=== PATIENT | female | born 1995 | race African-American/Black ===

== ENCOUNTER 2016-05-22 16:20 | Emergency (ER) | payer SELFPAY ==
[2016-05-22] MEDS ORDERED: Lidocaine 1% w/Epinephrine 1:100K 20 ML VIAL ONE (16:35)
== END 2016-05-22 17:03 | disposition home or self-care (01) ==
LOC: NAV ERS 16:20
DX: S01.81XA Laceration without foreign body of other part of head, initial encounter (principal); E66.9 Obesity, unspecified; W22.8XXA Striking against or struck by other objects, initial encounter
CPT/HCPCS: 12011; J2001

== ENCOUNTER 2021-12-23 12:27 | Emergency (ER) | payer SELFPAY ==
[2021-12-23] MEDS ORDERED: Ketorolac Tromethamine 60 MG/2 ML VIAL ONE (13:30)
== END 2021-12-23 13:46 | disposition home or self-care (01) ==
LOC: NAV ERS 12:27
DX: K04.7 Periapical abscess without sinus (principal); E78.5 Hyperlipidemia, unspecified
CPT/HCPCS: 96372; 99283; J1885